=== PATIENT | male | born 1965 | race Caucasian/White ===

== ENCOUNTER → 2017-06-10 | Outpatient (CLI) | payer BC ==
[~2017-06-10] MED LIST: CIPR500T78 PO
--- NOTE | 2017-06-10 15:36 | Diagnostic Imaging Report ---
INDICATION: Chest pain COMPARISON: None. FINDINGS: Frontal and lateral views of the chest demonstrate normal heart size and pulmonary vascularity. The lungs are clear. There are no signs of infiltrate, pleural effusions or pneumothoraces. The visualized osseous structures show no acute abnormalities. IMPRESSION: 1. No acute process. No signs of infiltrates, effusions or pneumothoraces. Dictated by: Dictated on workstation # [id number]
== END ==
LOC: RT 15:13
PROVIDERS: ATTEND Family Medicine
DX: R07.9 Chest pain, unspecified (principal)
CPT/HCPCS: 71020

== ENCOUNTER 2018-02-02 20:00 | Emergency (ER) | payer BC ==
--- OUTSIDE RECORDS SUMMARY | 2018-02-02 20:05 | XMS REPORT | Continuity of Care Document ---
Author Author [facility] Organization [facility] Address Unknown Phone Unavailable Allergies Active Description Code Type Severity Reaction Onset Reported/Identified Relationship to Patient Clinical Status Yes No Known Drug Allergies [id number] Drug Allergy Unknown N/A 11/20/2014 Medications There is no data. Problems Date Dx Coded Attending Type Code Diagnosis Diagnosed By 01/29/2012 DAKOTAH BARDALES APRN 461.9 SINUSITIS ACUTE 11/10/2014 DAKOTAH BARDALES APRN 786.59 OTHER CHEST PAIN 11/20/2014 LESTER GUERRERO APRN Ot 601.9 PROSTATITIS NOS 11/20/2014 LESTER GUERRERO APRN Ot 788.1 DYSURIA 11/23/2014 DAKOTAH BARDALES APRN V74.5 STD SCREEN 06/18/2017 IRWIN SÁNCHEZ MD Ot R07.9 CHEST PAIN, UNSPECIFIED 06/19/2017 IRWIN SÁNCHEZ MD Ot R07.9 CHEST PAIN, UNSPECIFIED 06/23/2017 GONZALO CAMP, IRWIN Roman Ot R07.9 CHEST PAIN, UNSPECIFIED 07/09/2017 GONZALO CAMP, IRWIN Roman Ot R07.9 CHEST PAIN, UNSPECIFIED Procedures Code [place] [address] ROUTINE VENIPUNCTURE 11/23/2014 96654 XRAY CHEST 2 VIEW 11/23/2014 70391 SYPHILLIS TEST 11/23/2014 08514 HIV ANTIBODIES (RML) 11/23/2014 Results There is no data. Encounters ACCT No. Visit Date/Time Discharge Status Pt. Type Provider Facility Loc./Unit Complaint [id number] 06/10/2017 15:13:00 06/10/2017 23:59:59 CLS Outpatient IRWIN SÁNCHEZ MD [facility] RT CHEST PAIN [id number] 11/20/2014 11:07:00 11/20/2014 12:36:00 DIS Emergency LESTER GUERRERO APRN [facility] ER POSS RUPTURED URETHRA [id number] 02/02/2018 20:02:00 ACT Emergency BUSHRA KNIGHT DO [facility] ER NASAL LAC [id number] 11/23/2014 08:35:00 11/23/2014 23:59:59 CLS Outpatient DAKOTAH BARDALES APRN
== END 2018-02-02 20:06 | disposition left against medical advice (07) ==
LOC: EDUNIT# 20:00 → ER 20:02
DX: S01.21XA Laceration without foreign body of nose, initial encounter (principal); X58.XXXA Exposure to other specified factors, initial encounter

== ENCOUNTER 2018-07-03 19:06 | Emergency (ER) | payer BC ==
[~2018-07-03] VITALS: Ht 180.3 cm; Wt 80.7 kg
[2018-07-03] MEDS ORDERED: LACTATED RINGERS 1,000 ML IV ONE (19:34)
[2018-07-03] MEDS ORDERED: ONDANSETRON 4 MG/2 ML (SDV) Z0FRAN IVP ONE (19:45)
[2018-07-03] MEDS ORDERED: fentaNYL INJECTION 100 MCG/2 ML AMP IVP ONE (19:45)
--- NOTE | 2018-07-03 19:46 | ED Abdominal Pain ---
General Chief Complaint: Abdominal/GI Problems Stated Complaint: ABD PAIN/L SIDE PAIN Source of Information: Patient, Family (daughter) Exam Limitations: No Limitations History of Present Illness Date Seen by Provider: Jul 03, 2018 Time Seen by Provider: 19:31 Initial Comments The patient presents to the ER by private conveyance with his daughter and a chief complaint that about 5:00 tonight he began to experience some low back on the left side especially and left lower quadrant abdominal pain. He says the pain is throbbing and he is not sure if it's because he over worked up but he does not have any history of trauma, falls etc. He has had some pain there in the past and was never severe. He has a history of when he was 11 years old having hernia repair on his left groin. He is having difficulty urinating, nausea without vomiting and a general unwell feeling. It hurts worse with movement. He's been working out on the porch mixing TPS and bleach trying to get rid of some mildew and while he may have breathed in some of the vapors she says is not having any cough or shortness of breath and is useless product before without any problem. He is not having any rash, fevers, diarrhea. Allergies and Home Medications Allergies Coded Allergies: No Known Drug Allergies (Unverified , 11/20/14) Home Medications Ciprofloxacin HCl 500 Mg Tablet, 500 MG PO BID Prescribed by: LESTER GUERRERO on 11/20/14 4408 Patient Home Medication List Home Medication List Reviewed: Yes Review of Systems Constitutional: No chills, No diaphoresis EENTM: No Blurred Vision, No Double Vision Respiratory: Denies Cough, Denies Shortness of Air Cardiovascular: Denies Chest Pain, Denies Edema, Denies Other Gastrointestinal: See HPI, Abdominal Pain, Constipated; Denies Diarrhea; Nausea ; Denies Poor Fluid Intake, Denies Rectal Bleeding, Denies Vomiting Genitourinary: Denies Burning, Denies Discharge, Denies Drainage Musculoskeletal: see HPI, back pain; No joint pain Skin: No pruritus, No rash Psychiatric/Neurological: Denies Headache, Denies Numbness, Denies Paresthesia Past Vfekqwo-Sbkitk-Dvvris Hx Patient Social History Alcohol Use: Denies Use Recreational Drug Use: No Smoking Status: Never a Smoker Recent Foreign Travel: No Contact w/Someone Who Travel: No Seasonal Allergies Seasonal Allergies: No Past Medical History Reproductive Disorders: No Physical Exam Vital Signs Vital Signs - First Documented 07/03/18 19:31 Temp 97.9 Pulse 79 Resp 19 B/P (MAP) 176/106 (129) O2 Delivery Room Air Capillary Refill : Height/Weight/BMI Height: 5'11" Weight: 176lbs. oz. 79.419105xm; BMI Method:Stated General Appearance: WD/WN, mild distress HEENT: PERRL/EOMI, pharynx normal Respiratory: no respiratory distress, no accessory muscle use Cardiovascular: normal peripheral pulses, regular rate, rhythm, no edema Peripheral Pulses: 2+ Radial Pulses (R), 2+ Radial Pulses (L) Gastrointestinal: abnormal bowel sounds (hypoactive), guarding, tenderness ( all 4 quadrants but especially in the left lower quadrant), other (negative for mesenteric signs) Extremities: normal range of motion, non-tender, normal inspection, normal capillary refill Neurologic/Psychiatric: alert, normal mood/affect, oriented x 3 Skin: normal color, warm/dry Progress/Results/Core Measures Results/Orders Lab Results Laboratory Tests Test 07/03/18 19:33 07/03/18 19:54 Range/Units White Blood Count 11.6 H 4.3-11.0 10^3/uL Red Blood Count 5.44 4.35-5.85 10^6/uL Hemoglobin 16.5 13.3-17.7 G/DL Hematocrit 46 40-54 % Mean Corpuscular Volume 85 80-99 FL Mean Corpuscular Hemoglobin 30 25-34 PG Mean Corpuscular Hemoglobin Concent 36 32-36 G/DL Red Cell Distribution Width 13.7 10.0-14.5 % Platelet Count 176 130-400 10^3/uL Mean Platelet Volume 11.3 H 7.4-10.4 FL Neutrophils (%) (Auto) 88 H 42-75 % Lymphocytes (%) (Auto) 6 L 12-44 % Monocytes (%) (Auto) 6 0-12 % Eosinophils (%) (Auto) 0 0-10 % Basophils (%) (Auto) 0 0-10 % Neutrophils # (Auto) 10.2 H 1.8-7.8 X 10^3 Lymphocytes # (Auto) 0.7 L 1.0-4.0 X 10^3 Monocytes # (Auto) 0.7 0.0-1.0 X 10^3 Eosinophils # (Auto) 0.0 0.0-0.3 10^3/uL Basophils # (Auto) 0.0 0.0-0.1 10^3/uL Neutrophils % (Manual) 89 % Lymphocytes % (Manual) 6 % Monocytes % (Manual) 4 % Band Neutrophils 1 % Sodium Level 144 135-145 MMOL/L Potassium Level 3.7 3.6-5.0 MMOL/L Chloride Level 108 H 98-107 MMOL/L Carbon Dioxide Level 22 21-32 MMOL/L Anion Gap 14 5-14 MMOL/L Blood Urea Nitrogen 17 7-18 MG/DL Creatinine 1.63 H 0.60-1.30 MG/DL Estimat Glomerular Filtration Rate 45 BUN/Creatinine Ratio 10 Glucose Level 118 H 70-105 MG/DL Calcium Level 9.5 8.5-10.1 MG/DL Total Bilirubin 1.6 H 0.1-1.0 MG/DL Aspartate Amino Transf (AST/SGOT) 24 5-34 U/L Alanine Aminotransferase (ALT/SGPT) 29 0-55 U/L Alkaline Phosphatase 77 40-136 U/L Total Creatine Kinase 363 H 30-200 U/L Troponin I < 0.30 <0.30 NG/ML Total Protein 7.6 6.4-8.2 GM/DL Albumin 5.0 H 3.2-4.5 GM/DL Urine Color YELLOW Urine Clarity CLEAR Urine pH 5 5-9 Urine Specific Bells 1.025 H 1.016-1.022 Urine Protein NEGATIVE NEGATIVE Urine Glucose (UA) NEGATIVE NEGATIVE Urine Ketones 3+ H NEGATIVE Urine Nitrite NEGATIVE NEGATIVE Urine Bilirubin NEGATIVE NEGATIVE Urine Urobilinogen NORMAL NORMAL MG/DL Urine Leukocyte Esterase NEGATIVE NEGATIVE Urine RBC (Auto) 3+ H NEGATIVE Urine RBC 10-25 H /HPF Urine WBC NONE /HPF Urine Crystals NONE /LPF Urine Bacteria NEGATIVE /HPF Urine Casts NONE /LPF Urine Mucus NEGATIVE /LPF Urine Culture Indicated NO My Orders Orders - NIA VANN Cbc With Automated Diff (07/03/18 19:34) Comprehensive Metabolic Panel (07/03/18 19:34) Ua Culture If Indicated (07/03/18 19:34) Saline Lock/Iv-Start (07/03/18 19:34) Lactated Ringers (Lr 1000 Ml Iv Solution (8/3/18 19:34) Fentanyl Injection (Sublimaze Injection (07/03/18 19:45) Ondansetron Injection (Zofran Injectio (07/03/18 19:45) Creatine Kinase (07/03/18 19:46) Manual Differential (07/03/18 19:33) Ekg Tracing (07/03/18 20:28) Troponin I (07/03/18 20:28) Ct Abd/Pelvis Wo(Kidney Stone) (07/03/18 20:28) Medications Given in ED Current Medications Medications Dose Ordered Sig/Maria Guadalupe Route Start Time Stop Time Status Last Admin Dose Admin Fentanyl Citrate 50 mcg ONCE ONCE IVP 07/03/18 19:45 07/03/18 19:46 DC 07/03/18 19:54 50 MCG Lactated Ringer's 1,000 ml @ 0 mls/hr Q0M ONCE IV 07/03/18 19:34 07/03/18 19:40 DC 07/03/18 19:54 999 MLS/HR Ondansetron HCl 4 mg ONCE ONCE IVP 07/03/18 19:45 07/03/18 19:46 DC 07/03/18 19:54 4 MG Vital Signs/I&O 07/03/18 19:31 Temp 97.9 Pulse 79 Resp 19 B/P (MAP) 176/106 (129) O2 Delivery Room Air Progress Progress Note #1: Time: 19:44 Progress Note He just received 400 mg of ibuprofen within the last hour which would be the full dose for noninflammatory pain. We will try some fentanyl instead as well as nausea medicines you can improve his symptoms with a liter of lactated Ringer 's. Wrap check a CPK looking for rhabdomyolysis possibly due to overexertion. The TPS and bleach would be a conjugate of its acid or mildly alkalotic solution which should cause mucus the brain irritation locally but wouldn't affect the abdomen like this unless he was drinking it. With his diffuse abdominal tenderness if it's not improving after the fentanyl significantly we' ll consider imaging. Kidney stone versus UTI versus colitis versus other. After we obtain a urinalysis specimen mobile and no whether we should go after a CT with and without contrast. Progress Note #2: Time: 20:20 Progress Note The patient urine shows blood without evidence of infection. This raises our suspicion more for kidney stone so we'll do a CT without contrast kidney stone study. He has a marginal elevation of his CPK which is probably not rhabdomyolysis. He has a marginal elevation of his white count. His creatinine is elevated which would go with a kidney stone. He also complained of the nurse' s feeling some palpitations that he's had before in the past so we went ahead and obtain an EKG which did not show anything new. Progress Note #3: Time: 21:06 Progress Note The patient's blood pressure has improved significantly down to 120 and he said his pain is much better almost gone. He does have a 3 mm stone at the UVJ on the left. This would explain all of his symptoms and laboratory. We are going to set him up with some outpatient antibiotics, Flomax etc. and let him go home. A KUB will not likely see a 3 mm stone. Initial ECG Impression Date: Jul 03, 2018 Initial ECG Impression Time: 20:25 Initial ECG Rate: 81 Initial ECG Rhythm: Normal Sinus Initial ECG Intervals: Normal Initial ECG Impression: Normal, Nonspecific Changes Comment No ST elevation or depression. No dysrhythmias. Diagnostic Imaging Diagonstic Imaging: CT (without contrast, kidney stone) Plain Films/CT/US/NM/MRI: abdomen ( study), pelvis Comments [facility] [place], [place] NAME: IRENE LANG [facility] REC#: [id number] PT STATUS: REG ER : 1965 PHYSICIAN: NIA VANN MD ADMIT DATE: 07/03/18/ER Draft Date of Exam:07/03/18 CT ABD/PELVIS WO(KIDNEY STONE) PROCEDURE: CT urinary tract, rule out kidney stone. TECHNIQUE: Multiple contiguous axial images were obtained through the abdomen and pelvis without the use of intravenous contrast. INDICATION: Left lower quadrant pain Comparison: None Findings: There is mild atelectasis in the dependent left lung. The heart is normal in size. No focal hepatic lesions are seen. The spleen appears normal. The pancreas appears normal. The adrenal glands are normal. There is mild prominence of the right renal collecting system with no obstructing calculus seen in the right ureter. The left kidney demonstrates significant perirenal stranding with hydronephrosis and hydroureter. There is a 3 mm calculus at the left ureterovesicular junction. The bowel loops are nondistended. There is no evidence of obstruction. The appendix is normal. No significant free fluid is seen. No free air is seen. No acute osseous abnormality is present. Impression: 1. Obstructing 3 mm calculus at the left ureterovesicular junction with moderate left hydroureteronephrosis and marked perirenal stranding. 2. Mild right hydronephrosis with no obstructing calculus seen. Dictated on workstation # [id number] Dict: 07/03/182049 Trans: 07/03/182099 [facility] [id number] Interpreted by: MIGEL JEROME MD Electronically signed by: Reviewed: Reviewed by Me Departure Impression Primary Impression: Kidney stone on left side Disposition: HOME, SELF-CARE Condition: Stable Departure-Patient Inst. Decision time for Depature: 21:08 Referrals: IRWIN SÁNCHEZ MD (PCP/Family) Primary Care Physician ISIS REBOLLEDO MD Patient Instructions: Kidney Stones (DC) Add. Discharge Instructions: Drink lots of fluids. Caffeine is encouraged. Use 1-2 tablets of the hydrocodone as necessary for pain. You can also use ibuprofen 400 mg every 8 hours as needed. clerical support the antibiotics/keflex and start taking 1 tablet twice a day for the next 5 days. You are having nausea take one tablet of Zofran place under your tongue every 6 hours as needed. Take the Flomax and take one tablet at night before bedtime until you've passed the stone as this will help the stone pass. Strain your urine and look for the stone to pass. It is not unusual for the stone to break up and fine sand and you'll miss it even with strainer. Is also not unusual to have some pink tinged urine and difficulty urinating 1-2 days after passing the stone. If your symptoms worsen or not improved by Friday then you should follow-up with Dr. Rebolledo. All discharge instructions reviewed with patient and/or family. Voiced understanding. Scripts Ondansetron (Ondansetron Odt) 4 Mg Tab.rapdis 4 MG PO Q6H PRN for NAUSEA/VOMITING, #8 TAB 0 Refills Prov: NIA VANN 07/03/18 Hydrocodone Bit/Acetaminophen (Hydrocodone/Acetaminophen 5/325mg Tablet) 1 Tab Tab 1-2 EACH PO Q6H PRN for BREAKTHROUGH PAIN, #15 TAB 0 Refills Prov: NIA VANN 07/03/18 Tamsulosin HCl (Flomax) 0.4 Mg Cap 0.4 MG PO HS for 7 Days, #7 CAP 0 Refills Prov: NIA VANN 07/03/18 Cephalexin (Keflex) 500 Mg Capsule 500 MG PO BID for 5 Days, #10 CAP 0 Refills Prov: NIA VANN 07/03/18 Copy Copies To 1: IRWIN SÁNCHEZ MD, TITUS J Jul 03, 2018 19:46
[2018-07-03 19:48] LABS: BASOPHILS % (AUTO) 0 % (0-10); EOSINOPHILS % (AUTO) 0 % (0-10); HEMATOCRIT 46 % (40-54); HEMOGLOBIN 16.5 G/DL (13.3-17.7); LYMPHOCYTES # (AUTO) 0.7 X 10^3 (1.0-4.0); LYMPHOCYTES % (AUTO) 6 % (12-44); MEAN CORPUSCULAR HEMOGLOBIN 30 PG (25-34); MEAN CORPUSCULAR HGB CONC 36 G/DL (32-36); MEAN CORPUSCULAR VOLUME 85 FL (80-99); MEAN PLATELET VOLUME 11.3 FL (7.4-10.4); MONOCYTES # (AUTO) 0.7 X 10^3 (0.0-1.0); MONOCYTES % (AUTO) 6 % (0-12); NEUTROPHILS # (AUTO) 10.2 X 10^3 (1.8-7.8); NEUTROPHILS % (AUTO) 88 % (42-75); PLATELET COUNT 176 10^3/uL (130-400); RED BLOOD COUNT 5.44 10^6/uL (4.35-5.85); RED CELL DISTRIBUTION WIDTH 13.7 % (10.0-14.5); WHITE BLOOD COUNT 11.6 10^3/uL (4.3-11.0)
[2018-07-03 19:59] LABS: BILIRUBIN,URINE NEGATIVE (NEGATIVE); CLARITY,URINE CLEAR; COLOR,URINE YELLOW; GLUCOSE, URINE (UA) NEGATIVE (NEGATIVE); KETONES,URINE 3+ (NEGATIVE); LEUKOCYTE ESTERASE ,URINE NEGATIVE (NEGATIVE); NITRITE,URINE NEGATIVE (NEGATIVE); PH,URINE 5 (5-9); PROTEIN,URINE NEGATIVE (NEGATIVE); UROBILINOGEN,URINE NORMAL (NORMAL)
[2018-07-03 20:02] LABS: BILIRUBIN,TOTAL 1.6 MG/DL (0.1-1.0); CALCIUM 9.5 MG/DL (8.5-10.1); CREATININE SERUM 1.63 MG/DL (0.60-1.30); POTASSIUM 3.7 MMOL/L (3.6-5.0); TOTAL PROTEIN 7.6 GM/DL (6.4-8.2)
[2018-07-03 20:12] LABS: BACTERIA,URINE NEGATIVE /HPF
[2018-07-03 20:27] LABS: BAND NEUTROPHILS 1 %; LYMPHOCYTES % (MANUAL) 6 %; MONOCYTES % (MANUAL) 4 %; NEUTROPHILS % (MANUAL) 89 %
--- NOTE | 2018-07-03 21:00 | Diagnostic Imaging Report ---
PROCEDURE: CT urinary tract, rule out kidney stone. TECHNIQUE: Multiple contiguous axial images were obtained through the abdomen and pelvis without the use of intravenous contrast. INDICATION: Left lower quadrant pain Comparison: None Findings: There is mild atelectasis in the dependent left lung. The heart is normal in size. No focal hepatic lesions are seen. The spleen appears normal. The pancreas appears normal. The adrenal glands are normal. There is mild prominence of the right renal collecting system with no obstructing calculus seen in the right ureter. The left kidney demonstrates significant perirenal stranding with hydronephrosis and hydroureter. There is a 3 mm calculus at the left ureterovesicular junction. The bowel loops are nondistended. There is no evidence of obstruction. The appendix is normal. No significant free fluid is seen. No free air is seen. No acute osseous abnormality is present. Impression: 1. Obstructing 3 mm calculus at the left ureterovesicular junction with moderate left hydroureteronephrosis and marked perirenal stranding. 2. Mild right hydronephrosis with no obstructing calculus seen. Dictated by: Dictated on workstation # [id number]
[2018-07-03] MEDS ORDERED: TAMS0.4C98 PO (21:12)
[2018-07-03] MEDS ORDERED: CEPH-507 PO (21:12)
[2018-07-03] MEDS ORDERED: ONDA4TAB11 PO (21:12)
[2018-07-03] MEDS ORDERED: ACHD5005 PO (21:12)
[2018-07-03] MEDS ORDERED: RX-HYDROCODONE/APAP 5/325 MG #4 TAB PK PO PRN (21:30)
[2018-07-03] MEDS ORDERED: CEPHALEXIN 250 MG (KEFLEX) CAP PO ONE (21:30)
[2018-07-03 21:33] VITALS: BP 131/77
== END 2018-07-03 21:33 | disposition home or self-care (01) ==
LOC: ER 19:06 → EDUNIT# 19:06 → ER 21:33
DX: N20.0 Calculus of kidney (principal)
CPT/HCPCS: 36415; 74176; 80053; 81000; 82550; 84484; 85007; 85027; 93005; 96374; 96375

== ENCOUNTER 2020-01-10 05:35 | Outpatient (CLI) | payer BC ==
[~2020-01-10] VITALS: Ht 180 cm; Wt 84.0 kg
[~2020-01-10 05:35] MED LIST changes: +ACHD5005 PO; +CEPH-507 PO; +ONDA4TAB11 PO; +TMSL.4C PO
== END 2020-01-10 15:47 | disposition home or self-care (01) ==
LOC: PREOP 05:35
PROVIDERS: ATTEND Surgery
DX: Z01.818 Encounter for other preprocedural examination (principal)

== ENCOUNTER 2020-12-02 19:38 | Emergency (ER) | payer BC ==
[~2020-12-02] VITALS: Ht 180 cm; Wt 82.5 kg
[2020-12-02] MEDS ORDERED: RT-ALBUTEROL INHALER HFA (VENTOLIN HFA) 18 GM IH ONE (20:07)
--- NOTE | 2020-12-02 20:20 | ED Cough/URI ---
General Chief Complaint: Respiratory Problems Stated Complaint: COVID-19;SOB;COUGH Nursing Triage Note: Patient presented to the ER with complaints of shortness of breath with coughing. Patient states he tested positive for covid on 11/26/20. Sepsis Screen: Possible Severe Sepsis Risk Source: patient Exam Limitations: no limitations History of Present Illness Date Seen by Provider: Dec 02, 2020 Time Seen by Provider: 20:01 Initial Comments Here with report of increasing cough and shortness of breath. Does have Covid 19. Tested on 11/26 and was positive. Onset of symptoms 11/21. Is taking kxmy-ktd-giuncou cough medicine as well as ibuprofen. Still having fevers. Approximately 10 days into this now. O2 saturations on arrival were 95%. Is febrile currently. He is able to eat and drink. Denies other concerns. Timing/Duration: week, getting worse Severity/Quality: dry cough Prior Episodes/Possible Cause: no prior episodes Modifying Factors: Worse With Coughing Associated Symptoms: cough, fever/chills, nasal congestion, nasal drainage, shortness of breath, sore throat Allergies and Home Medications Allergies Coded Allergies: No Known Drug Allergies (Unverified , 01/10/20) Home Medications No Active Prescriptions or Reported Meds Patient Home Medication List Home Medication List Reviewed: Yes Review of Systems Review of Systems Constitutional: see HPI; No chills; fever EENTM: see HPI Respiratory: cough, short of breath; No wheezing Cardiovascular: no symptoms reported Gastrointestinal: No abdominal pain, No nausea, No vomiting Genitourinary: no symptoms reported Psychiatric/Neurological: No Symptoms Reported Past Kmsmziw-Jqdqch-Qtopdw Hx Past Med/Social Hx: Reviewed Nursing Past Med/Soc Hx Patient Social History Alcohol Use: Denies Use Recreational Drug Use: No Smoking Status: Never a Smoker 2nd Hand Smoke Exposure: No Recent Foreign Travel: No Contact w/Someone Who Travel: No Recent Infectious Disease Expo: No Recent Hopitalizations: No Immunizations Up To Date Date of Influenza Vaccine: Sep 06, 2019 Seasonal Allergies Seasonal Allergies: Yes Past Medical History Surgeries: Yes (abd hernia as child, NASAL SURGERY) Respiratory: No Cardiac: No Neurological: No Reproductive Disorders: No Sexually Transmitted Disease: No HIV/AIDS: No Genitourinary: Yes Kidney Stones Gastrointestinal: No Musculoskeletal: No Endocrine: No HEENT: Yes (GLASSES/CONTACTS) Loss of Vision: Denies Hearing Impairment: Denies Cancer: No Psychosocial: No Integumentary: No Blood Disorders: No Adverse Reaction/Blood Tranf: No (N/A) Family Medical History Reviewed Nursing Family Hx Physical Exam Vital Signs - First Documented 12/02/20 20:01 Temp 38.0 Pulse 110 Resp 20 B/P (MAP) 134/92 (106) O2 Delivery Room Air Capillary Refill : Less Than 3 Seconds Height: 5'11" Weight: 178lbs. oz. 80.194814qd; 25.00 BMI Method:Stated General Appearance: WD/WN, no apparent distress HEENT: PERRL/EOMI, pharynx normal Neck: full range of motion, supple Respiratory: lungs clear, other (Coarse cough) Cardiovascular: no murmur, tachycardia Gastrointestinal: non tender, soft Neurologic/Psychiatric: alert, oriented x 3 Skin: normal color, warm/dry Progress/Results/Core Measures Suspected Sepsis Recent Fever Within 48 Hours: Yes Infection Criteria Present: Documented Infection New/Unexplained Altered Menta: No Sepsis Screen: Possible Severe Sepsis Risk SIRS Temperature: Pulse: 110 Respiratory Rate: 20 Blood Pressure 134 /92 Mean: 106 Results/Orders My Orders Orders - MERNA ROD MD Albuterol Inhaler (Ventolin Hfa) (12/02/20 20:07) Vital Signs/I&O 12/02/20 20:01 Temp 38.0 Pulse 110 Resp 20 B/P (MAP) 134/92 (106) O2 Delivery Room Air Capillary Refill : Less Than 3 Seconds Blood Pressure Mean: 106 Progress Note : Progress Note Seen and evaluated. O2 saturation 95% with mild fever of 100.4. He just took ibuprofen about an hour ago. Albuterol MDI 2 puffs given via spacer. This did help. No indication for further work-up at this point. I did discuss with the patient regarding supportive care. He is currently on steroids and has a few more days of that. He has yvqk-btx-ohhvyjp medication at home. Encouraged to drink plenty of fluids. We will send inhaler home with him for help with breathing. I did discuss with him regarding monitoring oxygen saturations. Discharged home with return precautions. Patient verbalized understanding of instructions and agreement with plan. Departure Impression Primary Impression: COVID-19 virus infection Additional Impression: Cough Disposition: HOME, SELF-CARE Condition: Stable Departure-Patient Inst. Decision time for Depature: 20:18 Referrals: IRWIN SÁNCHEZ MD (PCP/Family) Primary Care Physician Patient Instructions: Coronavirus Disease 2019 (COVID-19) Overview Add. Discharge Instructions: All discharge instructions reviewed with patient and/or family. Voiced understanding. You may use the inhaler with the spacer 2 puffs every 4 hours and occasionally you may use every 2 hours if needed. Monitor your oxygen saturation and return if oxygen saturation falls below 90% while resting (not after coughing fit or right after walking). You should drink plenty of fluids. You may take ibuprofen 600 mg every 8 hours as needed for pain or fever. You may take Tylenol 1000 mg every 6 hours as needed for fever or pain if you are not taking the imfg-nju-sdrnnlt cough medicine with acetaminophen in it. Do not take both at the same time as they both have acetaminophen in them. Return for worse pain, fever, vomiting, weakness, breathing problems or other concerns as needed. Scripts No Active Prescriptions or Reported Meds Copy Copies To 1: IRWIN SÁNCHEZ MD, TIMOTHY D MD Dec 02, 2020 20:20
[2020-12-02 20:35] VITALS: BP 134/92
[2020-12-02] MEDS ORDERED: RT-ALBUTEROL INHALER HFA (VENTOLIN HFA) 18 GM IH SCH (22:00)
== END 2020-12-02 20:25 | disposition home or self-care (01) ==
LOC: EDUNIT# 19:38 → ER 19:42
DX: U07.1 COVID-19 (principal)
CPT/HCPCS: 99283

== ENCOUNTER 2023-01-09 19:25 | Observation (INO) | payer BC ==
[~2023-01-09] VITALS: Ht 180 cm; Wt 87.2 kg
[2023-01-09] MEDS ORDERED: NITROGLYCERIN 0.4 MG SL TABS BTL 25'S SL PRN ×2 (19:30→22:45)
[2023-01-09] MEDS ORDERED: ASPIRIN 81 MG CHEW (CHILDREN'S ASA) PO ONE (19:30)
[2023-01-09 19:41] LABS: BASOPHILS # (AUTO) 0.1 10^3/uL (0.0-0.1); BASOPHILS % (AUTO) 1 % (0-10); EOSINOPHILS # (AUTO) 0.2 10^3/uL (0.0-0.3); EOSINOPHILS % (AUTO) 3 % (0-10); HEMATOCRIT 50 % (40-54); HEMOGLOBIN 17.1 g/dL (13.3-17.7); LYMPHOCYTES # (AUTO) 1.4 10^3/uL (1.0-4.0); LYMPHOCYTES % (AUTO) 21 % (12-44); MEAN CORPUSCULAR HEMOGLOBIN 30 pg (25-34); MEAN CORPUSCULAR HGB CONC 34 g/dL (32-36); MEAN CORPUSCULAR VOLUME 86 fL (80-99); MEAN PLATELET VOLUME 10.5 fL (9.0-12.2); MONOCYTES # (AUTO) 0.9 10^3/uL (0.0-1.0); MONOCYTES % (AUTO) 13 % (0-12); NEUTROPHILS # (AUTO) 4.1 10^3/uL (1.8-7.8); NEUTROPHILS % (AUTO) 60 % (42-75); PLATELET COUNT 191 10^3/uL (130-400); WHITE BLOOD COUNT 6.8 10^3/uL (4.3-11.0)
--- NOTE | 2023-01-09 19:41 | ED Chest Pain ---
General Chief Complaint: Chest Pain Stated Complaint: CHEST DISCOMFORT, PAIN, BACK PAIN Source: patient History of Present Illness Date Seen by Provider: Jan 09, 2023 Time Seen by Provider: 19:30 Initial Comments PT ARRIVES VIA POV FROM HOME C/O CHEST PAIN THAT BEGAN APPROXIMATELY 20 MINUTES PRIOR TO ARRIVAL, WHILE EATING PAIN IS MOSTLY IN LEFT CHEST, LEFT SHOULDER BLADE, AND UPPER BACK AND DOWN LEFT ARM RATES PAIN 5/10 NOW, WAS 7-8/10 AT WORST NOTHING WORSENS OR IMPROVES PAIN NO SHORTNESS OF BREATH NO SWEATS NO NAUSEA/VOMITING NO DIZZINESS OR SYNCOPE NO PALPITATIONS NO SWELLING IN LEGS OR PAIN IN CALVES HE DENIES COUGH/CONGESTION, FEVER OR RECENT ILLNESS ON FRIDAY AND FRIDAY MORNINGS, HE WOKE UP WITH SIMILAR CHEST PAIN--DID NOT SEEK CARE AND WENT AWAY. STATES ONE TIME IT WAS ON THE RIGHT SIDE OF HIS CHEST AND UPPER BACK. . PT INJURED HIS RIGHT FOOT 4 WEEKS AGO--HAS A SMALL SESAMOID BONE FRACTURE. HE HAS BEEN WEARING A POST OP SHOE AND USING CRUTCHES. SWITCHED TO A KNEE SCO OTER OVER THE WEEKEND--THOUGHT MAYBE USING CRUTCHES CAUSED HIS CHEST PAIN HE HAS BEEN SEEN BY DR. DE LA ROSA WELL DR. SÁNCHEZ HE HAD A ROUTINE WELLNESS VISIT WITH DR. SÁNCHEZ A MONTH AGO, AND SAW HIM LAST WEEK FOR FOLLOW UP ON FOOT INJURY. STATES HIS BP IS USUALLY 130'S/80'S HE DENIES ANY MEDICAL PROBLEMS OF ANY KIND AND STATES HE DOES NOT TAKE ANY MEDICATIONS. HE DENIES SMOKING/VAPING, ALCOHOL OR DRUG USE HE STATES HE HAS HAD 4 CUPS OF TEA TODAY AND SOME DR. PÉREZ. PCP: DR. SÁNCHEZ Allergies and Home Medications Allergies Coded Allergies: No Known Drug Allergies (Unverified , 01/10/20) Patient Home Medication List Home Medication List Reviewed: Yes No Active Prescriptions or Reported Meds Review of Systems Review of Systems Constitutional: no symptoms reported; No chills, No diaphoresis, No dizziness, No fever EENTM: No Symptoms Reported Respiratory: No Symptoms Reported; Denies Cough, Denies Shortness of Air Cardiovascular: See HPI, Chest Pain; Denies Edema, Denies Irregular Heart Rate, Denies Lightheadedness, Denies Palpitations, Denies Syncope Gastrointestinal: No Symptoms Reported; Denies Abdominal Pain, Denies Nausea, Denies Vomiting Genitourinary: No Symptoms Reported Musculoskeletal: see HPI, back pain, other (LEFT ARM PAIN ) Skin: no symptoms reported Psychiatric/Neurological: Anxiety; Denies Headache, Denies Numbness, Denies Paresthesia, Denies Tingling, Denies Weakness Endocrine: No Symptoms Reported Hematologic/Lymphatic: No Symptoms Reported Past Nlnuoys-Tyctrs-Uzkntn Hx Patient Social History Tobacco Use?: No Use of E-Cig and/or Vaping dev: No Substance use?: No Alcohol Use?: No Seasonal Allergies Seasonal Allergies: Yes Past Medical History Surgeries: Yes (abd hernia as child, NASAL SURGERY; COLONOSCOPY) Abdominal, Nose Respiratory: No Cardiac: No Neurological: No Reproductive Disorders: No Sexually Transmitted Disease: No HIV/AIDS: No Genitourinary: Yes Kidney Stones Gastrointestinal: Yes (HERNIA REPAIR CHILD) Abdominal Hernia, Hemorrhoids, Polyps Musculoskeletal: No Endocrine: No HEENT: Yes (GLASSES/CONTACTS; NASAL SURGERY) Loss of Vision: Denies Hearing Impairment: Denies Cancer: No Psychosocial: No Integumentary: No Blood Disorders: No Adverse Reaction/Blood Tranf: No (N/A) Family Medical History COLONOSCOPY 01/17/[address] SUAREZ: PREOPERATIVE DIAGNOSIS: Screening colonoscopy. POSTOPERATIVE DIAGNOSES: Colon polyps and internal hemorrhoids. PROCEDURE: Colonoscopy with snare polypectomy. Physical Exam Vital Signs Vital Signs - First Documented 01/09/23 19:29 Temp 35.8 Pulse 76 Resp 20 B/P (MAP) 201/115 (143) Pulse Ox 98 O2 Delivery Room Air Capillary Refill : Height, Weight, BMI Height: 5'11" Weight: 178lbs. oz. [id number]; 25.00 BMI Method:Stated General Appearance: WD/WN, Anxious (EXTREMELY ANXIOUS, TALKS NON-STOP AT GREAT LENGTH. ) HEENT: PERRL/EOMI Neck: Full Range of Motion, Normal Inspection, Non Tender, Supple; No Carotid Bruit, No JVD Respiratory: Chest Non Tender, Normal Breath Sounds, No Accessory Muscle Use, No Respiratory Distress Cardiovascular: Regular Rate, Rhythm, No Edema, No JVD, No Murmur, Normal Peripheral Pulses Gastrointestinal: Normal Bowel Sounds, No Organomegaly, No Pulsatile Mass, Non Tender, Soft Extremity: Normal Capillary Refill, No Calf Tenderness, No Pedal Edema, Other (RIGHT FOOT IN POST OP SHOE. ) Neurologic/Psychiatric: Alert, Oriented x3, No Motor/Sensory Deficits, material handling crew supervisor II- XII Norm as Tested, Other (VERY ANXIOUS) Skin: Normal Color, Warm/Dry Progress/Results/Core Measures Results/Orders Lab Results Laboratory Tests Test 01/09/23 19:35 Range/Units White Blood Count 6.8 4.3-11.0 10^3/uL Red Blood Count 5.79 H 4.30-5.52 10^6/uL Hemoglobin 17.1 13.3-17.7 g/dL Hematocrit 50 40-54 % Mean Corpuscular Volume 86 80-99 fL Mean Corpuscular Hemoglobin 30 25-34 pg Mean Corpuscular Hemoglobin Concent 34 32-36 g/dL Red Cell Distribution Width 13.2 10.0-14.5 % Platelet Count 191 130-400 10^3/uL Mean Platelet Volume 10.5 9.0-12.2 fL Immature Granulocyte % (Auto) 2 % Neutrophils (%) (Auto) 60 42-75 % Lymphocytes (%) (Auto) 21 12-44 % Monocytes (%) (Auto) 13 H 0-12 % Eosinophils (%) (Auto) 3 0-10 % Basophils (%) (Auto) 1 0-10 % Neutrophils # (Auto) 4.1 1.8-7.8 10^3/uL Lymphocytes # (Auto) 1.4 1.0-4.0 10^3/uL Monocytes # (Auto) 0.9 0.0-1.0 10^3/uL Eosinophils # (Auto) 0.2 0.0-0.3 10^3/uL Basophils # (Auto) 0.1 0.0-0.1 10^3/uL Immature Granulocyte # (Auto) 0.1 0.0-0.1 10^3/uL Prothrombin Time 13.1 12.2-14.7 SEC INR Comment 0.9 0.8-1.4 Activated Partial Thromboplast Time 35 24-35 SEC D-Dimer <= 0.27 0.00-0.49 UG/ML Sodium Level 139 135-145 MMOL/L Potassium Level 3.7 3.6-5.0 MMOL/L Chloride Level 103 98-107 MMOL/L Carbon Dioxide Level 18 L 21-32 MMOL/L Anion Gap 18 H 5-14 MMOL/L Blood Urea Nitrogen 18 7-18 MG/DL Creatinine 1.17 0.60-1.30 MG/DL Estimat Glomerular Filtration Rate 73 BUN/Creatinine Ratio 15 Glucose Level 71 70-105 MG/DL Calcium Level 9.7 8.5-10.1 MG/DL Corrected Calcium 9.3 8.5-10.1 MG/DL Magnesium Level 2.2 1.6-2.4 MG/DL Total Bilirubin 1.0 0.1-1.0 MG/DL Aspartate Amino Transf (AST/SGOT) 29 5-34 U/L Alanine Aminotransferase (ALT/SGPT) 41 0-55 U/L Alkaline Phosphatase 99 40-136 U/L Total Creatine Kinase 209 H 30-200 U/L Creatine Kinase MB 2.3 <6.6 NG/ML Myoglobin 46.1 10.0-92.0 NG/ML Troponin I < 0.028 <0.028 NG/ML B-Type Natriuretic Peptide < 10.0 <100.0 PG/ML Total Protein 8.0 6.4-8.2 GM/DL Albumin 4.5 3.2-4.5 GM/DL Amylase Level 70 25-125 U/L Lipase 62 8-78 U/L My Orders Orders - BUSHRA KNIGHT DO Ekg Tracing (01/09/23 19:29) Cbc With Automated Diff (01/09/23 19:30) Magnesium (01/09/23 19:30) Chest 1 View, Ap/Pa Only (01/09/23 19:30) Ekg Tracing (01/09/23 19:30) Comprehensive Metabolic Panel (01/09/23 19:30) Myoglobin Serum (01/09/23 19:30) Protime With Inr (01/09/23 19:30) Partial Thromboplastin Time (01/09/23 19:30) O2 (01/09/23 19:30) Monitor-Rhythm Ecg Trace Only (01/09/23 19:30) Ed Iv/Invasive Line Start (01/09/23 19:30) Creatine Kinase (01/09/23 19:30) Creatine Kinase Mb (01/09/23 19:30) Lipase (01/09/23 19:30) Amylase (01/09/23 19:30) Bnp [place] (01/09/23 19:30) Troponin I [place] (01/09/23 19:30) Nitroglycerin 0.4 Mg Btl 25's (Nitrostat (01/09/23 19:30) Aspirin Chewable Tablet (Baby Aspirin Ch (01/09/23 19:30) Fibrin Degradation Products (01/09/23 19:35) Morphine Injection (Morphine Injection (01/09/23 20:15) Ct Meli Chest/Noang Abd-Pelv W (01/09/23 20:15) Iohexol Injection (Omnipaque 350 Mg/Ml 1 (01/09/23 20:30) Received Contrast (Hold Metformin- Contr (01/09/23 20:30) Ns (Ivpb) (Sodium Chloride 0.9% Ivpb Bag (01/09/23 20:30) Iohexol Injection (Omnipaque 350 Mg/Ml 1 (01/09/23 20:45) Received Contrast (Hold Metformin- Contr (01/09/23 20:45) Ns (Ivpb) (Sodium Chloride 0.9% Ivpb Bag (01/09/23 20:45) Medications Given in ED Current Medications Medications Dose Ordered Sig/Maria Guadalupe Route Start Time Stop Time Status Last Admin Dose Admin Aspirin 324 mg ONCE ONCE PO 01/09/23 19:30 01/09/23 19:31 DC 01/09/23 19:37 324 MG Nitroglycerin 0.4 mg UD PRN SL 01/09/23 19:30 01/09/23 22:47 DC 01/09/23 19:38 0.4 MG Vital Signs/I&O 01/09/23 19:29 Temp 35.8 Pulse 76 Resp 20 B/P (MAP) 201/115 (143) Pulse Ox 98 O2 Delivery Room Air Progress Progress Note : Progress Note GIVEN: -ASPIRIN 324 MG -NTG X 1--NO RELIEF IN CHEST PAIN, BUT BP DOWN FROM 200 SYSTOLIC TO 130'S SYSTOLIC BUT PT IS ASYMPTOMATIC WITH DROP IN BP--NO DIZZINESS OR HEADACHE OR SWEATS OR NAUSEA, ETC. BP GRADUALLY TRENDED UP AGAIN--UP TO 170'S / 90'S. -GIVEN TOPROL -GIVEN LOVENOX HE REFUSES MORPHINE OR ANY PAIN MEDICATIONS. CONTINUES TO RATE PAIN 5/10 MUCH LATER, PT AGREES TO MORPHINE. PT IS EASING SOME AT TIME OF ADMIT. VITALS STABLE REVIEWED PRIOR RECORDS, INCLUDING ER VISITS, OUTPATIENT PROCEDURE, H&P, DISCHARGE INFO. REVIEWED ALL TEST RESULTS, RECOMMENDATION FOR ADMIT FOR FURTHER TREATMENT AND EVALUATION, AND PT AGREES TO PLAN OF CARE Initial ECG Impression Date: Jan 09, 2023 Initial ECG Impression Time: 19:41 Initial ECG Rate: 100 Initial ECG Rhythm: Normal Sinus Initial ECG Impression: Nonspecific Changes (MILD ANTERIOR/LATERAL ST DEPRESSION) Initial ECG Comparisson: No Previous ECG Available Comment INTERPRETED BY ME Diagnostic Imaging Comments CXR--PER RADIOLOGIST REPORT AT 1999 FINDINGS: The lung volumes are normal. No focal consolidation is seen. No large pleural effusion or pneumothorax is seen. The cardiomediastinal silhouette is normal in size and contour. No acute osseous abnormality is seen. IMPRESSION: No acute pulmonary abnormality seen. CT CHEST ANGIOGRAM / ABDOMEN-PELVIS--PER RADIOLOGIST REPORT AT 2101 FINDINGS: CTA CHEST: The bolus appears timed for the pulmonary arteries. Pulmonary arteries are diagnostic to the proximal segmental level. No filling defects are seen to indicate a pulmonary embolus. There is no evidence of right heart strain. The heart is normal in size. There is no pericardial effusion. No adenopathy is seen. The aorta appears normal in caliber. There is no evidence of dissection on this exam. There is mild atherosclerosis in the aorta. No consolidation is seen in the lungs. There is mild apical pleural scarring, bilaterally. No mass is seen. No central endobronchial lesion is identified. CT ABDOMEN/PELVIS: The liver demonstrates no focal lesion. The spleen appears normal. The pancreas is normal. The adrenal glands are normal. The kidneys demonstrate no enhancing lesion and no hydronephrosis. The bowel loops are nondistended without obstruction. The appendix is normal. There is moderate stool in the colon. No free fluid or free air is seen. No acute osseous abnormality is seen. 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 There are mild degenerative changes in the spine. IMPRESSION: 1. No pulmonary embolus or acute pulmonary abnormality. 2. Although timed for the pulmonary arteries, no abnormality is seen in the aorta. 3. No acute abnormality is seen in the abdomen and pelvis. Reviewed: Reviewed by Me Departure Communication (Admissions) 2124--SPOKE WITH DR. SÁNCHEZ, ACCEPTS PT FOR ADMIT. WILL CONSULT CARDIOLOGY IN AM Impression Primary Impression: Chest pain Additional Impressions: Anxiety HTN (hypertension) Disposition: ADMITTED INPATIENT Condition: Stable Admissions Decision to Admit Reason: Admit from ER (General) Decision to Admit/Date: Jan 09, 2023 Time/Decision to Admit Time: 21:25 Departure-Patient Inst. Referrals: IRWIN SÁNCHEZ MD (PCP/Family) Primary Care Physician Scripts No Active Prescriptions or Reported Meds BUSHRA KNIGHT DO Jan 09, 2023 19:41
--- NOTE | 2023-01-09 19:52 | Diagnostic Imaging Report ---
PATIENT HISTORY: Chest pain. TECHNIQUE: Single frontal view of the chest. COMPARISON: 06/10/2017. FINDINGS: The lung volumes are normal. No focal consolidation is seen. No large pleural effusion or pneumothorax is seen. The cardiomediastinal silhouette is normal in size and contour. No acute osseous abnormality is seen. IMPRESSION: No acute pulmonary abnormality seen. Dictated by: Dictated on workstation # [id number]
[2023-01-09 20:06] LABS: PARTIAL THROMBOPLASTIN TIME 35 SEC (24-35); PROTHROMBIN TIME PATIENT 13.1 SEC (12.2-14.7)
[2023-01-09 20:07] LABS: FIBRIN DEGRADATION PRODUCTS <= 0.27 UG/ML (0.00-0.49)
[2023-01-09 20:08] LABS: INR 0.9 (0.8-1.4)
[2023-01-09 20:11] LABS: ALBUMIN 4.5 GM/DL (3.2-4.5); CALCIUM 9.7 MG/DL (8.5-10.1); CREATININE SERUM 1.17 MG/DL (0.60-1.30); MAGNESIUM 2.2 MG/DL (1.6-2.4); POTASSIUM 3.7 MMOL/L (3.6-5.0)
[2023-01-09 20:12] LABS: CREATINE KINASE MB 2.3 NG/ML (<6.6)
[2023-01-09] MEDS ORDERED: morphine INJ 10 MG/ML 1ML (SYR OR VIAL) IVP ONE ×2 (20:15→22:00)
[2023-01-09] MEDS ORDERED: HOLD METFORMIN - RECEIVED CONTRAST 20 ML VIAL IV SCH ×2 (20:30→20:45)
[2023-01-09] MEDS ORDERED: NS 100 ML (IVPB) BAG IV ONE ×2 (20:30→20:45)
[2023-01-09] MEDS ORDERED: IOHEXOL 350 MG/ML 100 ML (OMNIPAQUE 350) VIAL IV ONE ×2 (20:30→20:45)
--- NOTE | 2023-01-09 20:55 | Diagnostic Imaging Report ---
INDICATION: Chest pain, hypertension, back pain. TECHNIQUE: CTA chest, abdomen and pelvis. Thin axial sections through the chest, abdomen and pelvis were obtained following intravenous contrast bolus. Multiplanar MIP images were reconstructed and reviewed. All CT scans use one or more of the following dose optimizing techniques: automated exposure control, MA and/or KvP adjustment based on patient size and exam type or iterative reconstruction. COMPARISON: CT abdomen and pelvis from 07/03/2018. Chest x-ray from 06/10/2017 FINDINGS: CTA CHEST: The bolus appears timed for the pulmonary arteries. Pulmonary arteries are diagnostic to the proximal segmental level. No filling defects are seen to indicate a pulmonary embolus. There is no evidence of right heart strain. The heart is normal in size. There is no pericardial effusion. No adenopathy is seen. The aorta appears normal in caliber. There is no evidence of dissection on this exam. There is mild atherosclerosis in the aorta. No consolidation is seen in the lungs. There is mild apical pleural scarring, bilaterally. No mass is seen. No central endobronchial lesion is identified. CT ABDOMEN/PELVIS: The liver demonstrates no focal lesion. The spleen appears normal. The pancreas is normal. The adrenal glands are normal. The kidneys demonstrate no enhancing lesion and no hydronephrosis. The bowel loops are nondistended without obstruction. The appendix is normal. There is moderate stool in the colon. No free fluid or free air is seen. No acute osseous abnormality is seen. 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 There are mild degenerative changes in the spine. IMPRESSION: 1. No pulmonary embolus or acute pulmonary abnormality. 2. Although timed for the pulmonary arteries, no abnormality is seen in the aorta. 3. No acute abnormality is seen in the abdomen and pelvis. Dictated by: Dictated on workstation # [id number]
[2023-01-09] MEDS ORDERED: ENOXAPARIN 100 MG/1 ML (LOVENOX) SYR SC ONE (21:30)
[2023-01-09] MEDS ORDERED: meTOproloL SUCCINATE 50 MG (TOPROL XL) TAB PO SCH (21:30)
[2023-01-09 22:24] VITALS: BP 183/107
[2023-01-09 22:30] VITALS: BP 171/104
[2023-01-09 22:45] VITALS: BP 184/100
[2023-01-09] MEDS ORDERED: ONDANSETRON 4 MG/2 ML (SDV) Z0FRAN IV PRN (22:45)
[2023-01-09] MEDS ORDERED: LORazepam 1 MG (ATIVAN) TAB PO PRN (22:45)
[2023-01-09] MEDS ORDERED: morphine INJ 4 MG/ML 1 ML (VIAL/SYRINGE) IV PRN (22:45)
[2023-01-09] MEDS ORDERED: ONDANSETRON 4 MG/2 ML (SDV) Z0FRAN IVP PRN (22:45)
[2023-01-09 23:00] VITALS: BP 168/102
[2023-01-09 23:30] VITALS: BP 155/93
[2023-01-10] VITALS (8 sets, daily range): BP systolic 121–183; BP diastolic 79–107
[2023-01-10 05:00] LABS: BASOPHILS # (AUTO) 0.1 10^3/uL (0.0-0.1); BASOPHILS % (AUTO) 1 % (0-10); EOSINOPHILS # (AUTO) 0.2 10^3/uL (0.0-0.3); EOSINOPHILS % (AUTO) 3 % (0-10); HEMATOCRIT 48 % (40-54); HEMOGLOBIN 16.1 g/dL (13.3-17.7); LYMPHOCYTES # (AUTO) 1.4 10^3/uL (1.0-4.0); LYMPHOCYTES % (AUTO) 20 % (12-44); MEAN CORPUSCULAR HEMOGLOBIN 29 pg (25-34); MEAN CORPUSCULAR HGB CONC 33 g/dL (32-36); MEAN CORPUSCULAR VOLUME 86 fL (80-99); MEAN PLATELET VOLUME 10.8 fL (9.0-12.2); MONOCYTES # (AUTO) 0.9 10^3/uL (0.0-1.0); MONOCYTES % (AUTO) 12 % (0-12); NEUTROPHILS # (AUTO) 4.3 10^3/uL (1.8-7.8); NEUTROPHILS % (AUTO) 62 % (42-75); PLATELET COUNT 182 10^3/uL (130-400); WHITE BLOOD COUNT 6.9 10^3/uL (4.3-11.0)
[2023-01-10 05:25] LABS: BUN/CREATININE RATIO 13; CARBON DIOXIDE 19 MMOL/L (21-32); CHLORIDE 107 MMOL/L (98-107); CHOLESTEROL 152 MG/DL (< 200); CREATININE SERUM 1.19 MG/DL (0.60-1.30); GFR ESTIMATED 71; GLUCOSE 103 MG/DL (70-105); HDL CHOLESTEROL 27 MG/DL (40-60); SODIUM 139 MMOL/L (135-145); TRIGLYCERIDES 464 MG/DL (<150)
[2023-01-10] MEDS: CATHETER FLUSH 10 ML SYR IVP SCH ×2 (06:20→11:19)
--- NOTE | 2023-01-10 07:43 | History & Physicial ---
History of Present Illness History of Present Illness Reason for visit/HPI 57-year-old male presents to [facility] emergency department during the evening of January 09, 2023 with chest pain He does not have a history of previous cardiac disease patient currently does not take any medications other than vitamins. He states the pain occurred prior to arrival and at the time he was eating. The pain was located primarily along the left chest, shoulder blade as well as upper back. He denied any shortness of breath, cardiac palpitations, or dizziness His blood pressure was elevated in emergency department but came down during the course of the stay Typically his blood pressure is 130/80's. He has not had any previous work up for cardiac other than coming in for blood pressure checks and having his laboratory monitored. He has been sing crutches due to a foot injury that occurred a few months ago. He wondered whether the crutches had something to do with his chest pain as well. He was seen by Dr. Betts recently and informed to wear a boot. Date of Admission Jan 09, 2023 at 21:25 Date Seen by a Provider: Jan 10, 2023 Time Seen by a Provider: 06:50 I consulted on this patient on 01/10/23 07:37 Attending Physician Salo Sánchez MD Admitting Physician Admitting Physician: Saol Sánchez MD Attending Physician: Salo Sánchez MD Consult Allergies and Home Medications Allergies Coded Allergies: No Known Drug Allergies (Unverified , 01/10/20) Patient Home Medication List Home Medication List Reviewed: Yes No Active Prescriptions or Reported Meds Past Otslezr-Slimjh-Baogmq Hx Patient Social History Marrital Status: Number of Children: 2 Smoking Status: Never a Smoker 2nd Hand Smoke Exposure: No Recent Hopitalizations: No Have you traveled recently?: No Alcohol Use?: No Pt feels they are or have been: No Immunizations Up To Date Date of Influenza Vaccine: Sep 06, 2019 Seasonal Allergies Seasonal Allergies: Yes Surgeries Yes (abd hernia as child, NASAL SURGERY; COLONOSCOPY) Abdominal, Nose Respiratory No Cardiovascular No Neurological No Reproductive System Hx Reproductive Disorders: No Sexually Transmitted Disease: No HIV/AIDS: No Genitourinary Yes Kidney Stones Gastrointestinal Yes (HERNIA REPAIR CHILD) Abdominal Hernia, Hemorrhoids, Polyps Musculoskeletal No Endocrine History of Endocrine Disorders: No HEENT History of HEENT Disorders: Yes (GLASSES/CONTACTS; NASAL SURGERY) Loss of Vision: Denies Hearing Impairment: Denies Cancer No Psychosocial History of Psychiatric Problem: No Integumentary History of Skin or Integumenta: No Blood Transfusions History of Blood Disorders: No Adverse Reaction to a Blood Tr: No (N/A) Family Medical History Other Significan Family Hx: COLONOSCOPY 01/17/[address] SUAREZ: PREOPERATIVE DIAGNOSIS: Screening colonoscopy. POSTOPERATIVE DIAGNOSES: Colon polyps and internal hemorrhoids. PROCEDURE: Colonoscopy with snare polypectomy. Review of Systems Constitutional: see HPI Physical Exam Vital Signs Vital Signs - First Documented 01/09/23 19:29 Temp 35.8 Pulse 76 Resp 20 B/P (MAP) 201/115 (143) Pulse Ox 98 O2 Delivery Room Air Capillary Refill : Less Than 3 Seconds Height, Weight, BMI Height: 5'11" Weight: 178lbs. oz. 80.858791lk; 26.91 BMI Method:Stated General Appearance: No Apparent Distress, Anxious (somewhat) Eyes: Bilateral Eye Normal Inspection HEENT: Pharynx Normal Neck: Supple Respiratory: Lungs Clear Cardiovascular: Regular Rate, Rhythm Gastrointestinal: Soft Rectal: Deferred Back: Normal Inspection Extremity: Normal Capillary Refill Neurologic/Psychiatric: Alert, Oriented x3 Skin: Normal Color Comments [facility], [place] NAME: IRENE LANG [facility] REC#: [id number] PT STATUS: REG ER : 1965 PHYSICIAN: BUSHRA KNIGHT DO ADMIT DATE: 01/09/23/ER Signed Date of Exam:01/09/23 CHEST 1 VIEW, AP/PA ONLY PATIENT HISTORY: Chest pain. TECHNIQUE: Single frontal view of the chest. COMPARISON: 06/10/2017. FINDINGS: The lung volumes are normal. No focal consolidation is seen. No large pleural effusion or pneumothorax is seen. The cardiomediastinal silhouette is normal in size and contour. No acute osseous abnormality is seen. IMPRESSION: No acute pulmonary abnormality seen. Dictated by: Dictated on workstation # [id number] Dict: 01/09/231950 Trans: 01/09/232041 [id number] Interpreted by: MIGEL JEROME MD Electronically signed by: MIGEL JEROME MD 01/09/232041 Assessment/Plan Assessment and Plan 1. Chest paincould be related to musculoskeletal from his using crutches. Will also exclude cardiac he does have low HDL and elevated triglycerides. Noted ECG changes as well. -patient has been placed on cardiac stepdown for further cardio pulmonary monitoring -He did receive 1 dose of Lovenox in ED and placed on aspirin -Cardiology consulted for the am of 01/10 Dr Tenorio. Admission Diagnosis 1. Chest paincould be related to musculoskeletal from his using crutches. Will also exclude cardiac he does have low HDL and elevated triglycerides. Noted ECG changes as well. Admission Status: Observation Reason for Inpatient Admission: further monitoring of his chest pain as well as cardiology consultation Clinical Quality Measures AMI/AHF: ASA po Prior to arrival: Yes SALO SÁNCHEZ MD Jan 10, 2023 07:43
--- NOTE | 2023-01-10 08:51 | Consultation-Cardiology ---
HPI-Cardiology Cardiology Consultation: Date of Consultation 01/10/23 Time Seen by a Provider: 08:30 Date of Admission 01-09-23 Attending Physician Salo Sánchez MD Admitting Physician Admitting Physician: Salo Sánchez MD Attending Physician: Salo Sánchez MD Consulting Physician Milena Tenorio MD HPI: Chief Complaint: Chest pain Mr. Senior is a 57 yr old male admitted to [facility] from the ED with c/o sudden onset of left scapular pain which then radiated to his left should and L ACW. He reports feeling his left arm was weak. He states the discomfort was constant for several hours. Nothing made it better or worse. It was a sharp, severe pain. He reports no c/o palpitations or SOB. He denies any diaphoresis. He reports he received nitro and morphine in the ED which did not really improve the discomfort. He states the discomfort in his chest and left arm have resolved. He states he has mild scapular discomfort on his left side. He reports he has been having right scapular pain for the last week which is positional. He reports he hurt his right foot and has been using crutches for a few weeks. He denies any n/v/d. No c/o fever or chills. Review of Systems-Cardiology Review of Systems Constitutional: No chills, No fever, No malaise Eyes: No vision change Ears/Nose/Throat: No epistaxis, No recent hearing loss Respiratory: As described under HPI Cardiovascular: As described under HPI Gastrointestinal: No constipation, No diarrhea, No nausea, No vomiting Genitourinary: No dysuria Musculoskeletal: As describe under HPI Skin: No rash on exposed areas, No ulcerations on exposed areas Psychiatric/Neurological: No anxiety, No depression, No seizure, No focal weakness, No syncope Hematologic: No bleeding abnormalities VSG-Cohsmp-Ekhtbe Hx Patient Social History Marrital Status: Number of Children: 2 Smoking Status: Never a Smoker 2nd Hand Smoke Exposure: No Have you traveled recently?: No Alcohol Use?: No Pt feels they are or have been: No Immunizations Up To Date Date of Influenza Vaccine: Sep 06, 2019 Past Medical History PMH As described under Assessment. Family Medical History Family Medical History: His mother had atrial fibrillation and valvular dz. He reports his father had CHF. Allergies and Home Medications Allergies Coded Allergies: No Known Drug Allergies (Unverified , 01/10/20) Patient Home Medication List Ascorbate Calcium (Vitamin C) 500 Mg Tablet, 500 MG PO DAILY, (Reported) Entered as Reported by: RENETTA CARPENTER on 01/10/231124 Last Action: Reviewed Cholecalciferol (Vitamin D3) (Vitamin D3) 50 Mcg (2000 Unit) Tablet, 50 MCG PO DAILY, (Reported) Entered as Reported by: RENETTA CARPENTER on 01/10/231124 Last Action: Reviewed Diphenhydramine HCl (Benadryl) 25 Mg Capsule, 25-50 MG PO HS PRN for ALLERGY SYMPTOMS, (Reported) Entered as Reported by: RENETTA CARPENTER on 01/10/231124 Last Action: Reviewed Fluticasone Propionate (Flonase Allergy Relief) 50 Mcg/Actuation [place].susp, 1-2 SPRAYS NSEACH DAILY PRN for CONGESTION, (Reported) Entered as Reported by: RENETTA CARPENTER on 01/10/231124 Last Action: Reviewed Metoprolol Succinate (Metoprolol Succinate) 25 Mg Tab.er.24h, 25 MG PO DAILY Prescribed by: SALO SÁNCHEZ on 01/10/231652 Multivitamin (Multivitamin) 1 Each Tablet, 1 EACH PO DAILY, (Reported) Entered as Reported by: RENETTA CARPENTER on 01/10/231124 Last Action: Reviewed Phenylephrine HCl (Sudafed PE) 10 Mg Tablet, 10 MG PO Q6H PRN for CONGESTION, (Reported) Entered as Reported by: RENETTA CARPENTER on 01/10/231124 Last Action: Reviewed Vitamin B Complex (Vitamin B Complex) 1 Each Tablet, 1 EACH PO DAILY, (Reported) Entered as Reported by: RENETTA CARPENTER on 01/10/231124 Last Action: Reviewed Zinc Gluconate (Zinc) 50 Mg Tablet, 50 MG PO DAILY, (Reported) Entered as Reported by: RENETTA CARPENTER on 01/10/231124 Last Action: Reviewed Physical Exam-Cardiology Physical Exam Vital Signs/I&O Capillary Refill : Less Than 3 Seconds Constitutional: AAO x 3, well-developed, well-nourished HEENT: PERRL, hearing is well preserved, oral hygience is good Neck: No carotid bruit; carotid pulses are 2 + bilaterally Respiratory: No accessory muscle use, No respiratory distress; chest expansion is symmetric, chest is bilaterally symmetric, lungs clear to auscultation Cardiovascular: regular rate-rhythm; No JVD; S1 and S2 Gastrointestinal: No tender; soft, round, audible bowel sounds Extremities: no lower extremity edema bilateral Neurologic/Psychiatric: grossly intact (moves all extremities) Skin: No rash on exposed areas, No ulcerations on exposed areas Data Review Labs Radiology NAME: IRENE SENIOR [facility] REC#: [id number] PT STATUS: REG ER : 1965 PHYSICIAN: BUSHRA KNIGHT DO ADMIT DATE: 01/09/23/ER Signed Date of Exam:01/09/23 CHEST 1 VIEW, AP/PA ONLY PATIENT HISTORY: Chest pain. TECHNIQUE: Single frontal view of the chest. COMPARISON: 06/10/2017. FINDINGS: The lung volumes are normal. No focal consolidation is seen. No large pleural effusion or pneumothorax is seen. The cardiomediastinal silhouette is normal in size and contour. No acute osseous abnormality is seen. IMPRESSION: No acute pulmonary abnormality seen. Dictated by: Dictated on workstation # [id number] Dict: 01/09/231950 Trans: 01/09/232041 [id number] Interpreted by: MIGEL JEROME MD Electronically signed by: MIGEL JEROME MD 01/09/232041 NAME: IRENE SENIOR [facility] REC#: [id number] PT STATUS: ADM Rahul : 1965 PHYSICIAN: BUSHRA KNIGHT DO ADMIT DATE: 01/09/23/CSD Signed Date of Exam:01/09/23 CT RADHA CHEST/NOANG ABD-PELV W INDICATION: Chest pain, hypertension, back pain. TECHNIQUE: CTA chest, abdomen and pelvis. Thin axial sections through the chest, abdomen and pelvis were obtained following intravenous contrast bolus. Multiplanar MIP images were reconstructed and reviewed. All CT scans use one or more of the following dose optimizing techniques: automated exposure control, MA and/or KvP adjustment based on patient size and exam type or iterative reconstruction. COMPARISON: CT abdomen and pelvis from 07/03/2018. Chest x-ray from 06/10/2017 FINDINGS: CTA CHEST: The bolus appears timed for the pulmonary arteries. Pulmonary arteries are diagnostic to the proximal segmental level. No filling defects are seen to indicate a pulmonary embolus. There is no evidence of right heart strain. The heart is normal in size. There is no pericardial effusion. No adenopathy is seen. The aorta appears normal in caliber. There is no evidence of dissection on this exam. There is mild atherosclerosis in the aorta. No consolidation is seen in the lungs. There is mild apical pleural scarring, bilaterally. No mass is seen. No central endobronchial lesion is identified. CT ABDOMEN/PELVIS: The liver demonstrates no focal lesion. The spleen appears normal. The pancreas is normal. The adrenal glands are normal. The kidneys demonstrate no enhancing lesion and no hydronephrosis. The bowel loops are nondistended without obstruction. The appendix is normal. There is moderate stool in the colon. No free fluid or free air is seen. No acute osseous abnormality is seen. 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 There are mild degenerative changes in the spine. IMPRESSION: 1. No pulmonary embolus or acute pulmonary abnormality. 2. Although timed for the pulmonary arteries, no abnormality is seen in the aorta. 3. No acute abnormality is seen in the abdomen and pelvis. Dictated by: Dictated on workstation # [id number] Dict: 01/09/232043 Trans: 01/09/232206 [id number] Interpreted by: MIGEL JEROME MD Electronically signed by: MIGEL JEROME MD 01/09/232206 ECG Impression ECG Initial ECG Rhythm: Normal Sinus A/P-Cardiology Assessment/Admission Diagnosis Chest discomfort of undetermined etiology - no evidence of ACS HTN - noted at time of ED visit - denies h/o Discussion and Recomendations Chest discomfort of undetermined etiology - no evidence of ACS - advise MPI to eval perfusion - advise echo to eval valvular status HTN - continue BB Monitor lab Further recs will be based on his hospital course We would like to thank medical services for this consult Clinical Quality Measures AMI/AHF: ASA po Prior to arrival: Yes JAQUAN DEVRIES Jan 10, 2023 08:51
[2023-01-10] MEDS ORDERED: ASPIRIN E.C. 81 MG (ECOTRIN) TAB PO SCH (09:00)
[2023-01-10] MEDS ORDERED: meTOproloL SUCCINATE 50 MG (TOPROL XL) TAB PO SCH (09:00)
[2023-01-10] MEDS ORDERED: REGADENOSON 0.4 MG/5 ML SYR (LEXISCAN) IV ONE ×2 (09:00→11:40)
--- NOTE | 2023-01-10 09:41 | Consultation-Cardiology ---
HPI-Cardiology Cardiology Consultation: Date of Consultation 01/10/23 Time Seen by a Provider: 08:45 Date of Admission Attending Physician Salo Morgan MD Admitting Physician Admitting Physician: Salo Morgan MD Attending Physician: Salo Morgan MD Consulting Physician CORY VALIENTE MD, MA, FACP, FACC, FSCAI, CCDS Physician requesting Card consult: Dr Morgan HPI: Chief Complaint: Chest pain Mr. Senior is a 57 yr old male admitted to [facility] from the ED with c/o sudden onset of left scapular pain which then radiated to his left should and L ACW. He reports feeling his left arm was weak. He states the discomfort was constant for several hours. Nothing made it better or worse. It was a sharp, severe pain. He reports no c/o palpitations or SOB. He denies any diaphoresis. He reports he received nitro and morphine in the ED which did not really improve the discomfort. He states the discomfort in his chest and left arm have resolved. He states he has mild scapular discomfort on his left side. He reports he has been having right scapular pain for the last week which is po sitional. He reports he hurt his right foot and has been using crutches for a few weeks. He denies any n/v/d. No c/o fever or chills. Review of Systems-Cardiology Review of Systems Constitutional: No chills, No fever, No malaise Eyes: No vision change Ears/Nose/Throat: No epistaxis, No recent hearing loss Respiratory: As described under HPI Cardiovascular: As described under HPI Gastrointestinal: No constipation, No diarrhea, No nausea, No vomiting Genitourinary: No dysuria Musculoskeletal: As describe under HPI Skin: No rash on exposed areas, No ulcerations on exposed areas Psychiatric/Neurological: No anxiety, No depression, No seizure, No focal weakness, No syncope Hematologic: No bleeding abnormalities [facility] Hx Patient Social History Marrital Status: Number of Children: 2 Smoking Status: Never a Smoker 2nd Hand Smoke Exposure: No Have you traveled recently?: No Alcohol Use?: No Pt feels they are or have been: No Immunizations Up To Date Date of Influenza Vaccine: Sep 06, 2019 Past Medical History PMH As described under Assessment. Family Medical History Family Medical History: His mother had atrial fibrillation and valvular dz. He reports his father had CHF. Allergies and Home Medications Allergies Coded Allergies: No Known Drug Allergies (Unverified , 01/10/20) Patient Home Medication List Home Medication List Reviewed: Yes No Active Prescriptions or Reported Meds Physical Exam-Cardiology Physical Exam Vital Signs/I&O 01/09/23 01/09/23 01/09/23 01/09/23 22:06 22:20 22:24 22:30 Temp 36.9 Pulse 72 84 84 79 Resp 14 99 13 B/P (MAP) 161/103 183/107 (132) 171/104 (126) Pulse Ox 98 16 98 O2 Delivery Room Air Room Air Room Air 01/09/23 01/09/23 01/09/23 01/10/23 22:45 23:00 23:30 00:00 Temp 36.9 Pulse 67 75 66 65 Resp 16 16 14 18 B/P (MAP) 184/100 (128) 168/102 (124) 155/93 (113) 143/99 (114) Pulse Ox 98 97 96 94 O2 Delivery Room Air Room Air Room Air Room Air 01/10/23 01/10/23 01/10/23 01/10/23 01:00 04:00 07:00 07:30 Temp 36.3 36.8 Pulse 63 54 54 61 Resp 12 25 B/P (MAP) 123/87 (99) 131/89 (103) Pulse Ox 96 O2 Delivery Room Air Capillary Refill : Less Than 3 Seconds Constitutional: AAO x 3, well-developed, well-nourished HEENT: PERRL, hearing is well preserved, oral hygience is good Neck: No carotid bruit; carotid pulses are 2 + bilaterally Respiratory: No accessory muscle use, No respiratory distress; chest expansion is symmetric, chest is bilaterally symmetric, lungs clear to auscultation Cardiovascular: regular rate-rhythm; No JVD; S1 and S2 Gastrointestinal: No tender; soft, round, audible bowel sounds Extremities: no lower extremity edema bilateral Neurologic/Psychiatric: grossly intact (moves all extremities) Skin: No rash on exposed areas, No ulcerations on exposed areas Data Review Labs Laboratory Tests 01/09/23 19:35: White Blood Count 6.8, Red Blood Count 5.79H, Hemoglobin 17.1, Hematocrit 50, Mean Corpuscular Volume 86, Mean Corpuscular Hemoglobin 30, Mean Corpuscular Hemoglobin Concent 34, Red Cell Distribution Width 13.2, Platelet Count 191, Mean Platelet Volume 10.5, Immature Granulocyte % (Auto) 2, Neutrophils (%) (Auto) 60, Lymphocytes (%) (Auto) 21, Monocytes (%) (Auto) 13H, Eosinophils (%) (Auto) 3, Basophils (%) (Auto) 1, Neutrophils # (Auto) 4.1, Lymphocytes # (Auto) 1.4, Monocytes # (Auto) 0.9, Eosinophils # (Auto) 0.2, Basophils # (Auto) 0.1, Immature Granulocyte # (Auto) 0.1, Prothrombin Time 13.1, INR Comment 0.9, Activated Partial Thromboplast Time 35, D-Dimer <= 0.27, Sodium Level 139, Potassium Level 3.7, Chloride Level 103, Carbon Dioxide Level 18L, Anion Gap 18H , Blood Urea Nitrogen 18, Creatinine 1.17, Estimat Glomerular Filtration Rate 73, BUN/Creatinine Ratio 15, Glucose Level 71, Calcium Level 9.7, Corrected Calcium 9.3, Magnesium Level 2.2, Total Bilirubin 1.0, Aspartate Amino Transf (AST/SGOT) 29, Alanine Aminotransferase (ALT/SGPT) 41, Alkaline Phosphatase 99, Total Creatine Kinase 209H, Creatine Kinase MB 2.3, Myoglobin 46.1, Troponin I < 0.028, B-Type Natriuretic Peptide < 10.0, Total Protein 8.0, Albumin 4.5, Amylase Level 70, Lipase 62 01/09/23 22:50: Troponin I < 0.028 01/10/23 01:30: Troponin I < 0.028 01/10/23 04:54: White Blood Count 6.9, Red Blood Count 5.65H, Hemoglobin 16.1, Hematocrit 48, Mean Corpuscular Volume 86, Mean Corpuscular Hemoglobin 29, Mean Corpuscular Hemoglobin Concent 33, Red Cell Distribution Width 13.2, Platelet Count 182, Mean Platelet Volume 10.8, Immature Granulocyte % (Auto) 2, Neutrophils (%) (Auto) 62, Lymphocytes (%) (Auto) 20, Monocytes (%) (Auto) 12, Eosinophils (%) (Auto) 3, Basophils (%) (Auto) 1, Neutrophils # (Auto) 4.3, Lymphocytes # (Auto) 1.4, Monocytes # (Auto) 0.9, Eosinophils # (Auto) 0.2, Basophils # (Auto) 0.1, Immature Granulocyte # (Auto) 0.1, Sodium Level 139, Potassium Level 4.0, Chloride Level 107, Carbon Dioxide Level 19L, Anion Gap 13, Blood Urea Nitrogen 16, Creatinine 1.19, Estimat Glomerular Filtration Rate 71, BUN/Creatinine Ratio 13, Glucose Level 103, Calcium Level 9.0, Triglycerides Level 464H, Cholesterol Level 152, LDL Cholesterol Direct 76, VLDL Cholesterol , HDL Cholesterol 27L A/P-Cardiology Assessment/Admission Diagnosis Chest discomfort of undetermined etiology - no evidence of ACS HTN - noted at time of ED visit - denies h/o Family h/o early CAD (brother) Discussion and Recomendations Chest discomfort of undetermined etiology - no evidence of ACS - advise MPI to eval perfusion - advise echo to eval valvular status HTN - continue BB Monitor lab Further recs will be based on his hospital course We would like to thank Medical services for this consult Clinical Quality Measures AMI/AHF: ASA po Prior to arrival: Yes CORY VALIENTE MD FACP FAC CCDS Jan 10, 2023 09:41
[2023-01-10] MEDS ORDERED: ENOXAPARIN 100 MG/1 ML (LOVENOX) SYR SC NR (10:00)
[2023-01-10] MEDS ORDERED: CHOL200052 PO (11:25)
[2023-01-10] MEDS ORDERED: DIPH25CA79 PO (11:25)
[2023-01-10] MEDS ORDERED: MULT-1136 PO (11:25)
[2023-01-10] MEDS ORDERED: FLUT9.9S NSEACH (11:25)
[2023-01-10] MEDS ORDERED: ASCO-262 PO (11:25)
[2023-01-10] MEDS ORDERED: ZINC50TA11 PO (11:25)
[2023-01-10] MEDS ORDERED: VITA1TAB17 PO (11:25)
[2023-01-10] MEDS ORDERED: PHEN-832 PO (11:25)
[2023-01-10] MEDS ORDERED: meTOproloL SUCCINATE 50 MG (TOPROL XL) TAB PO NR (14:00)
[2023-01-10] MEDS ORDERED: MTP25TSR PO (16:53)
--- NOTE | 2023-01-10 19:15 | STRESS TEST ---
DATE OF SERVICE: 01/10/2023 RESTING AND POST REGADENOSON TECHNETIUM-99M TETROFOSMIN SPECT CT IMAGING ORDERING PHYSICIAN: Richelle Foreman APRN PRIMARY PHYSICIAN: Dr. Morgan OTHER PHYSICIAN: Dr. Valiente. CLINICAL DIAGNOSIS: Chest pain. Baseline images were carried out after injection of 10.69 mCi of technetium-99m tetrofosmin. This was followed by 0.4 mg and 33 mCi of technetium-99m tetrofosmin for stress imaging. The electrocardiogram showed sinus rhythm at baseline. It did not change significantly with regadenoson infusion. The patient noted some abdominal cramping and mild shortness of breath, which resolved in a few minutes. Review of images at rest and following stress does not indicate any significant perfusion defects consistent with myocardial ischemia or infarction. Gated images showed normal global left ventricular systolic function with normal regional wall motion. Left ventricular ejection fraction is calculated to be 61%. CONCLUSIONS: 1. No evidence of any significant myocardial ischemia or infarction on this study. 2. Normal regional wall motion. 3. Normal global left ventricular systolic function with a calculated ejection fraction of 61%. Job ID: [id number] DocumentID: [id number] Dictated Date: 01/10/2023 14:54:47 [employer] Reprocess Operator Head Date: 01/10/2023 19:14:00 Dictated By: CORY VALIENTE MD; EMANI; FACP; FACC;
== END 2023-01-10 16:08 | disposition home or self-care (01) ==
LOC: EDUNIT# 19:25 → ER 19:27 → UNDOADMOB 21:25 → CSD 21:25 → UNDODISOB 01-10 16:08
PROVIDERS: ADMIT Family Medicine; ATTEND Family Medicine
DX: R07.89 Other chest pain (principal); I10 Essential (primary) hypertension; Z79.899 Other long term (current) drug therapy
CPT/HCPCS: 71045; 71275; 74177; 78452; 80048; 80053; 80061; 82150; 82550; 82553; 83690; 83735; 83874; 83880; 84484 ×2; 85025 ×2; 85379; 85610; 85730; 93005 ×2; 93017; 93041; 96372; 96374; 99284; A9502; G0378; 36415

== ENCOUNTER 2023-02-04 18:21 | Emergency (ER) | payer BC ==
[~2023-02-04] VITALS: Ht 180.3 cm; Wt 83.9 kg
[~2023-02-04 18:21] MED LIST changes: +ASCO-262 PO; +CHOL200052 PO; +DIPH25CA79 PO; +FLUT9.9S NSEACH; +MTP25TSR PO; +MULT-1136 PO; +PHEN-832 PO; +VITA1TAB17 PO; +ZINC50TA11 PO
[2023-02-04] MEDS ORDERED: NITROGLYCERIN 0.4 MG SL TABS BTL 25'S SL PRN (19:15)
[2023-02-04] MEDS ORDERED: ASPIRIN 81 MG CHEW (CHILDREN'S ASA) PO ONE (19:15)
[2023-02-04 19:19] LABS: BASOPHILS # (AUTO) 0.1 10^3/uL (0.0-0.1); BASOPHILS % (AUTO) 1 % (0-10); EOSINOPHILS # (AUTO) 0.2 10^3/uL (0.0-0.3); EOSINOPHILS % (AUTO) 3 % (0-10); HEMATOCRIT 47 % (40-54); LYMPHOCYTES # (AUTO) 1.2 10^3/uL (1.0-4.0); LYMPHOCYTES % (AUTO) 25 % (12-44); MEAN CORPUSCULAR HEMOGLOBIN 29 pg (25-34); MEAN CORPUSCULAR HGB CONC 34 g/dL (32-36); MEAN CORPUSCULAR VOLUME 85 fL (80-99); MEAN PLATELET VOLUME 10.6 fL (9.0-12.2); MONOCYTES # (AUTO) 0.6 10^3/uL (0.0-1.0); MONOCYTES % (AUTO) 12 % (0-12); NEUTROPHILS # (AUTO) 2.8 10^3/uL (1.8-7.8); NEUTROPHILS % (AUTO) 58 % (42-75); PLATELET COUNT 194 10^3/uL (130-400); WHITE BLOOD COUNT 4.8 10^3/uL (4.3-11.0)
[2023-02-04 19:24] LABS: ALBUMIN 4.4 GM/DL (3.2-4.5); POTASSIUM 4.1 MMOL/L (3.6-5.0)
[2023-02-04 19:25] LABS: CALCIUM 9.1 MG/DL (8.5-10.1)
[2023-02-04 19:26] LABS: TOTAL PROTEIN 7.2 GM/DL (6.4-8.2)
[2023-02-04 19:28] LABS: BILIRUBIN,TOTAL 0.9 MG/DL (0.1-1.0)
[2023-02-04 19:30] LABS: CREATININE SERUM 1.26 MG/DL (0.60-1.30)
[2023-02-04 19:33] LABS: MAGNESIUM 1.9 MG/DL (1.6-2.4)
[2023-02-04 19:34] LABS: PROTHROMBIN TIME PATIENT 13.4 SEC (12.2-14.7)
--- NOTE | 2023-02-04 20:27 | Diagnostic Imaging Report ---
INDICATION: Chest pain. Comparison 01/09/2023. FINDINGS: The lungs clear. No failure, effusion or pneumothorax. IMPRESSION: Negative Dictated by: Dictated on workstation # [id number]
--- NOTE | 2023-02-04 21:23 | ED Chest Pain ---
General Chief Complaint: Cardiac/General Problems Stated Complaint: HIGH BP 150/100 Nursing Triage Note: PT AMB TO RM 8 WITH COMPLAINT OF HIGH BLOOD PRESSURE. STATES BP WAS HIGH AT HOME. AND IS HAVING LEFT SIDED CHEST, BACK PAIN. TOOK METOPROLOL AROUND 6PM Source: patient Exam Limitations: no limitations History of Present Illness Date Seen by Provider: Feb 04, 2023 Time Seen by Provider: 18:40 Initial Comments This 57-year-old gentleman presents to the emergency room with complaints of left upper chest pain and pain into the left scapular region. He states symp toms started yesterday when he noticed pain in the right scapular region. He took ibuprofen and believes this resolved the pain. Tonight he took ibuprofen when he developed pain in the left scapular region. That pain seemed to resolve with ibuprofen. However, he was also having pain in the left upper chest radiating down into the left arm which did not resolve with ibuprofen. He noticed at that time his systolic blood pressure was quite high in the 180s. He took his evening dose of metoprolol succinate. He has been taking 12.5 mg twice daily since he was admitted to the hospital for a chest pain work-up January 09. During that visit he had a cardiopulmonary rule out that included a CT angiogram of the chest and a stress test, both of which were negative. He has not yet had his follow-up appointment with Dr. Durand. He has had an injury to the right great toe sesamoid bone in December that has required him to intermittently use crutches and a knee scooter. This is caused unusual strain on his upper body musculoskeletal system. He believes that may be a contributing factor. His present chest pain started around 1745. He reports pain level currently at 3/10. He denies any observable alleviating or exacerbating factors for his current chest pain. Allergies and Home Medications Allergies Coded Allergies: No Known Drug Allergies (Unverified , 01/10/20) Patient Home Medication List Home Medication List Reviewed: Yes Ascorbate Calcium (Vitamin C) 500 Mg Tablet, 500 MG PO DAILY, (Reported) Entered as Reported by: RENETTA CARPENTER on 01/10/23 112 Cholecalciferol (Vitamin D3) (Vitamin D3) 50 Mcg (2000 Unit) Tablet, 50 MCG PO DAILY, (Reported) Entered as Reported by: RENETTA CARPENTER on 01/10/23 1125 Diphenhydramine HCl (Benadryl) 25 Mg Capsule, 25-50 MG PO HS PRN for ALLERGY SYMPTOMS, (Reported) Entered as Reported by: RENETTA CARPENTER on 01/10/23 112 Fluticasone Propionate (Flonase Allergy Relief) 50 Mcg/Actuation [place].susp, 1-2 SPRAYS NSEACH DAILY PRN for CONGESTION, (Reported) Entered as Reported by: RENETTA CARPENTER on 01/10/23 112 Metoprolol Succinate (Metoprolol Succinate) 25 Mg Tab.er.24h, 25 MG PO DAILY Prescribed by: IRWIN SÁNCHEZ on 01/10/23 165 Multivitamin (Multivitamin) 1 Each Tablet, 1 EACH PO DAILY, (Reported) Entered as Reported by: RENETTA CARPENTER on 01/10/23 112 Phenylephrine HCl (Sudafed PE) 10 Mg Tablet, 10 MG PO Q6H PRN for CONGESTION, (Reported) Entered as Reported by: RENETTA CARPENTER on 01/10/23 112 Vitamin B Complex (Vitamin B Complex) 1 Each Tablet, 1 EACH PO DAILY, (Reported) Entered as Reported by: RENETTA CARPENTER on 01/10/23 112 Zinc Gluconate (Zinc) 50 Mg Tablet, 50 MG PO DAILY, (Reported) Entered as Reported by: RENETTA CARPENTER on 01/10/231124 Review of Systems Review of Systems Constitutional: no symptoms reported EENTM: No Symptoms Reported Respiratory: No Symptoms Reported Cardiovascular: See HPI Gastrointestinal: No Symptoms Reported Genitourinary: No Symptoms Reported Musculoskeletal: see HPI Skin: no symptoms reported Psychiatric/Neurological: No Symptoms Reported Endocrine: No Symptoms Reported Past Jawuczm-Folhca-Zdekqw Hx Patient Social History Tobacco Use?: No Use of E-Cig and/or Vaping dev: No Substance use?: No Alcohol Use?: No Pt feels they are or have been: No Immunizations Up To Date First/Initial COVID19 Vaccinat: X1 Second COVID19 Vaccination [place]: X1 Third COVID19 Vaccination Date: X1 Seasonal Allergies Seasonal Allergies: Yes Past Medical History Surgeries: Yes (abd hernia as child, NASAL SURGERY; COLONOSCOPY) Abdominal, Nose Respiratory: No Cardiac: Yes (Negative stress test January 2023) Hypertension Neurological: No Reproductive Disorders: No Sexually Transmitted Disease: No HIV/AIDS: No Genitourinary: Yes Kidney Stones Gastrointestinal: Yes (HERNIA REPAIR CHILD) Abdominal Hernia, Hemorrhoids, Polyps Musculoskeletal: No Endocrine: No HEENT: Yes (GLASSES/CONTACTS; NASAL SURGERY) Loss of Vision: Denies Hearing Impairment: Denies Cancer: No Psychosocial: No Integumentary: No Blood Disorders: No Adverse Reaction/Blood Tranf: No (N/A) Family Medical History COLONOSCOPY 01/17/[address] SUAREZ: PREOPERATIVE DIAGNOSIS: Screening colonoscopy. POSTOPERATIVE DIAGNOSES: Colon polyps and internal hemorrhoids. PROCEDURE: Colonoscopy with snare polypectomy. Physical Exam Vital Signs Vital Signs - First Documented 02/04/23 18:37 Temp 35.7 Pulse 65 Resp 17 B/P (MAP) 177/120 (139) Pulse Ox 99 O2 Delivery Room Air Capillary Refill : Less Than 3 Seconds Height, Weight, BMI Height: 5'11" Weight: 178lbs. oz. 80.647031gx; 25.00 BMI Method:Stated General Appearance: WD/WN, Anxious HEENT: Normal ENT Inspection Neck: Normal Inspection; No JVD Respiratory: Lungs Clear, Normal Breath Sounds, No Accessory Muscle Use, Other (Slight point tenderness in the left upper chest) Cardiovascular: Regular Rate, Rhythm, No Edema, No Murmur, Normal Peripheral Pulses Gastrointestinal: Non Tender, Soft Extremity: Normal Inspection, Non Tender, No Calf Tenderness, No Pedal Edema; No Swelling Neurologic/Psychiatric: Alert, Oriented x3, No Motor/Sensory Deficits, Other (Mildly anxious) Skin: Normal Color, Warm/Dry; No Rash Progress/Results/Core Measures Results/Orders Lab Results Laboratory Tests Test 02/04/23 18:41 02/04/23 21:55 Range/Units White Blood Count 4.8 4.3-11.0 10^3/uL Red Blood Count 5.56 H 4.30-5.52 10^6/uL Hemoglobin 16.0 13.3-17.7 g/dL Hematocrit 47 40-54 % Mean Corpuscular Volume 85 80-99 fL Mean Corpuscular Hemoglobin 29 25-34 pg Mean Corpuscular Hemoglobin Concent 34 32-36 g/dL Red Cell Distribution Width 12.9 10.0-14.5 % Platelet Count 194 130-400 10^3/uL Mean Platelet Volume 10.6 9.0-12.2 fL Immature Granulocyte % (Auto) 1 % Neutrophils (%) (Auto) 58 42-75 % Lymphocytes (%) (Auto) 25 12-44 % Monocytes (%) (Auto) 12 0-12 % Eosinophils (%) (Auto) 3 0-10 % Basophils (%) (Auto) 1 0-10 % Neutrophils # (Auto) 2.8 1.8-7.8 10^3/uL Lymphocytes # (Auto) 1.2 1.0-4.0 10^3/uL Monocytes # (Auto) 0.6 0.0-1.0 10^3/uL Eosinophils # (Auto) 0.2 0.0-0.3 10^3/uL Basophils # (Auto) 0.1 0.0-0.1 10^3/uL Immature Granulocyte # (Auto) 0.0 0.0-0.1 10^3/uL Prothrombin Time 13.4 12.2-14.7 SEC INR Comment 1.0 0.8-1.4 Activated Partial Thromboplast Time 37 H 24-35 SEC Sodium Level 142 135-145 MMOL/L Potassium Level 4.1 3.6-5.0 MMOL/L Chloride Level 108 H 98-107 MMOL/L Carbon Dioxide Level 25 21-32 MMOL/L Anion Gap 9 5-14 MMOL/L Blood Urea Nitrogen 15 7-18 MG/DL Creatinine 1.26 0.60-1.30 MG/DL Estimat Glomerular Filtration Rate 67 BUN/Creatinine Ratio 12 Glucose Level 91 70-105 MG/DL Calcium Level 9.1 8.5-10.1 MG/DL Corrected Calcium 8.8 8.5-10.1 MG/DL Magnesium Level 1.9 1.6-2.4 MG/DL Total Bilirubin 0.9 0.1-1.0 MG/DL Aspartate Amino Transf (AST/SGOT) 22 5-34 U/L Alanine Aminotransferase (ALT/SGPT) 32 0-55 U/L Alkaline Phosphatase 81 40-136 U/L Myoglobin 46.0 10.0-92.0 NG/ML Troponin I < 0.028 < 0.028 <0.028 NG/ML Total Protein 7.2 6.4-8.2 GM/DL Albumin 4.4 3.2-4.5 GM/DL My Orders Orders - HONG AMOS MD Cbc With Automated Diff (02/04/23 19:09) Magnesium (02/04/23 19:09) Chest 1 View, Ap/Pa Only (02/04/23 19:09) Ekg Tracing (02/04/23 19:09) Comprehensive Metabolic Panel (02/04/23 19:09) Myoglobin Serum (02/04/23 19:09) Protime With Inr (02/04/23 19:09) Partial Thromboplastin Time (02/04/23 19:09) O2 (02/04/23 19:09) Monitor-Rhythm Ecg Trace Only (02/04/23 19:09) Ed Iv/Invasive Line Start (02/04/23 19:09) Troponin I [place] (02/04/23 19:09) Nitroglycerin 0.4 Mg Btl 25's (Nitrostat (02/04/23 19:15) Aspirin Chewable Tablet (Baby Aspirin Ch (02/04/23 19:15) Ekg Tracing (02/04/23 19:30) Troponin I [place] (02/04/23 21:45) Medications Given in ED Current Medications Medications Dose Ordered Sig/Maria Guadalupe Route Start Time Stop Time Status Last Admin Dose Admin Aspirin 324 mg ONCE ONCE PO 02/04/23 19:15 02/04/23 19:16 DC 02/04/23 19:41 324 MG Nitroglycerin 0.4 mg UD PRN SL 02/04/23 19:15 02/04/23 23:33 DC 02/04/23 19:41 0.4 MG Vital Signs/I&O 02/04/23 02/04/23 18:37 23:32 Temp 35.7 36.0 Pulse 65 55 Resp 17 16 B/P (MAP) 177/120 (139) 136/104 Pulse Ox 99 98 O2 Delivery Room Air Room Air Blood Pressure Mean: 139 Progress Progress Note : Progress Note Patient received aspirin and nitroglycerin. He did have further reduction in pain with nitroglycerin. The remnant pain gradually resolved, and he was pain- free at the time of discharge. Labs including CBC, CMP, and troponin were all reviewed in their entirety by me. They were unremarkable. A repeat troponin drawn about 4 hours from onset of pain was also negative. Chest x-ray was unremarkable and was viewed by me. 2 EKG tracings were obtained. The second was obtained as there was artifact in the first. No acute ischemia was noted by me on either EKG and rhythm remained sinus. Given the recent negative cardiac work-up during hospitalization as well as negative cardiopulmonary work-up in the ER with serial troponin and resolution of symptoms, patient was determined s afe for discharge. Blood pressure trended down to a normotensive level and remained there even after effect of nitroglycerin should have worn off. We discussed follow-up instructions and return precautions. EKG #1: EKG Time: 18:40 Rate: 63 Rhythm: Normal Sinus Intervals: Normal ECG Impression: Normal Comment Normal sinus rhythm with no diagnostic ST elevation or depression. There is artifact obscuring T wave in V1, V2, and V3. No abnormal intervals or axis deviation. EKG #2: EKG Time: 20:36 Rate: 58 Rhythm: Normal Sinus Intervals: Normal ECG Impression: Normal Comment Normal sinus rhythm with no ST elevation or depression. No abnormal intervals or axis deviation. Diagnostic Imaging Diagonstic Imaging: Xray Plain Films/CT/US/NM/MRI: chest Comments NAME: IR[facility] REC#: [id number] PT STATUS: REG ER : 1965 PHYSICIAN: HONG AMOS MD ADMIT DATE: 02/04/23/ER Signed Date of Exam:02/04/23 CHEST 1 VIEW, AP/PA ONLY INDICATION: Chest pain. Comparison 01/09/2023. FINDINGS: The lungs clear. No failure, effusion or pneumothorax. IMPRESSION: Negative Dictated by: Dictated on workstation # [id number] Dict: 02/04/232020 Trans: 02/04/232029 JENS [id number] Interpreted by: BLAZE BERRIOS Electronically signed by: BLAZE BERRIOS 02/04/232029 Departure Impression Primary Impression: Atypical chest pain Additional Impression: Hypertension Qualified Codes: I10 - Essential (primary) hypertension Disposition: 01 HOME, SELF-CARE Condition: Improved Departure-Patient Inst. Decision time for Depature: 23:24 Referrals: IRWIN SÁNCHEZ MD (PCP/Family) Primary Care Physician Patient Instructions: Chest Pain, High Blood Pressure ED Add. Discharge Instructions: Keep your follow-up appointment with Dr. Tenorio. At this time there is no evidence to suggest your chest pain is caused by your heart. However, as a precaution I recommend taking aspirin 81 mg until your follow-up appointment with him. To treat your pain you may take ibuprofen up to 600 mg every 6 hours as needed and/or Tylenol (acetaminophen) up to 1000 mg every 6 hours as needed. Return to care if you have worsening symptoms or if you have pain that is not responsive to above medications. Also return to care if you have chest pain associated with other symptoms such as unusual sweating, vomiting, notable shortness of breath, lightheadedness, etc. Continue taking your metoprolol succinate (Toprol-XL). You may either take 25 mg daily or split it to take 12.5 mg twice daily. All discharge instructions reviewed with patient and/or family. Voiced understanding. Copy Copies To 1: CORY TENORIO MD FACP FAC CCDS Copies To 2: IRWIN SÁNCHEZ MD, JOSHUA T MD Feb 04, 2023 21:23
[2023-02-04 23:32] VITALS: BP 136/104
== END 2023-02-04 23:32 | disposition home or self-care (01) ==
LOC: EDUNIT# 18:21 → ER 18:22
DX: I10 Essential (primary) hypertension (principal); R07.89 Other chest pain; Z79.899 Other long term (current) drug therapy
CPT/HCPCS: 36415; 71045; 80053; 83735; 83874; 84484; 85025; 85610; 85730; 93005

== ENCOUNTER 2023-03-28 15:02 | Outpatient (RCR) | payer BC | END 2023-03-30 | disposition home or self-care (01) | PROVIDERS: ATTEND Podiatrist Foot & Ankle Surgery | DX: M25.871 Other specified joint disorders, right ankle and foot (principal) ==

== ENCOUNTER 2023-04-24 15:49 | Outpatient (RCR) | payer BC | END 2023-04-30 | disposition home or self-care (01) | PROVIDERS: ATTEND Podiatrist Foot & Ankle Surgery | DX: M25.871 Other specified joint disorders, right ankle and foot (principal) ==

== ENCOUNTER → 2023-07-31 | Outpatient (RCR) | payer BC | END | disposition home or self-care (01) | PROVIDERS: ATTEND Podiatrist Foot & Ankle Surgery | DX: M25.80 Other specified joint disorders, unspecified joint (principal) ==

== ENCOUNTER 2023-08-15 15:33 | Outpatient (RCR) | payer BC | END 2023-08-15 16:20 | disposition home or self-care (01) | PROVIDERS: ATTEND Podiatrist Foot & Ankle Surgery | DX: M25.871 Other specified joint disorders, right ankle and foot (principal) ==